=== PATIENT | female | born 1960 | race Two or more races ===

== ENCOUNTER → 2022-06-05 | Outpatient (CLI) | payer MEDICAID ==
[2022-06-05 08:44] LABS: Urine Bacteria None Seen /hpf (None Seen)
[2022-06-05 08:52] LABS: Basophils # (auto) 0.1 10 ^3/uL (0-0.2); Eosinophils # (auto) 0.1 10 ^3/uL (0-0.8); Eosinophils % (auto) 1.8 % (0.0-7.0); Hematocrit 40.1 % (36.0-46.0); Hemoglobin 13.3 g/dL (12.2-16.2); Lymphocytes # (auto) 2.4 10 ^3/uL (0.4-5.4); Lymphocytes % (auto) 44.2 % (10.0-50.0); Mean Corpuscular Hemoglobin 29.1 pg (28.0-32.0); Mean Corpuscular Hgb Conc. 33.1 g/dL (32.0-36.0); Mean Corpuscular Volume 87.9 fL (80.0-100.0); Monocytes # (auto) 0.5 10 ^3/uL (0-1.3); Monocytes % (auto) 8.9 % (0.0-12.0); Neutrophils # (auto) 2.4 10 ^3/uL (1.6-8.6); Neutrophils % (auto) 44.1 % (37.0-80.0); Red Blood Cells 4.56 10^6/uL (4.0-5.20); Red Cell Distribution Width 13.9 % (11.8-14.3); White Blood Cell 5.5 10^3/uL (4.4-10.8)
[2022-06-05 09:26] LABS: Albumin 3.8 g/dL (3.4-5.0); Anion Gap 6 (5-15); Carbon Dioxide 29 mmol/L (21-32); Chloride 106 mmol/L (98-107); Sodium 141 mmol/L (136-145)
[2022-06-05 09:33] LABS: Alanine Aminotransferase 31 U/L (13-56); Alkaline Phosphatase 79 U/L (45-117); Aspartate Aminotransferase 20 U/L (15-37); BUN/Creatinine Ratio 13.3; Blood Urea Nitrogen 11 mg/dL (7-18); Calcium 9.1 mg/dL (8.5-10.1); Cholesterol 237 mg/dL (< 200); GFR African American 90 mL/min; GFR Non-African American 74 mL/min; Glucose 113 mg/dL (74-106); HDL Cholesterol 44 mg/dL (40-59); Total Protein 7.6 g/dL (6.4-8.2); Triglycerides 411 mg/dL (< 150)
[2022-06-05 12:27] LABS: Urine Specific Gravity 1.018 (1.001-1.035)
[2022-06-05 12:28] LABS: Urine Blood Negative /uL (Negative)
[2022-06-05 12:29] LABS: Urine Ca Carbonate Crystal None Seen /hpf (None Seen); Urine WBC Clumps None Seen /hpf (None Seen)
[2022-06-05 12:30] LABS: Urine Amorphous Sediment None Seen /hpf; Urine Budding Yeast None Seen /hpf (None Seen); Urine Fine Granular Cast None Seen /lpf; Urine Hyaline Cast None Seen /lpf (0 - 2); Urine Mucus None Seen (None Seen); Urine Sperm None Seen /hpf (None Seen)
[2022-06-05 12:31] LABS: Urine Amorphous Crystal None Seen /hpf (None Seen)
[2022-06-05 12:33] LABS: Urine WBC 30-50 /hpf (0 - 5)
== END | disposition home or self-care (01) ==
LOC: LAB 08:24
PROVIDERS: ATTEND Student in an Organized Health Care Education/Training Program
DX: Z12.11 Encounter for screening for malignant neoplasm of colon (principal); E55.9 Vitamin D deficiency, unspecified; R73.9 Hyperglycemia, unspecified; R03.0 Elevated blood-pressure reading, without diagnosis of hypertension
CPT/HCPCS: 36415; 80053; 80061; 81001; 82306; 83036; 84443; 85025